=== PATIENT | female | born 1975 | race Caucasian/White ===

== ENCOUNTER 2020-07-22 09:36 | Outpatient (NON) | payer OTHER, SELFPAY ==
[2020-07-22 20:47] LABS: SARS-CoV-2 RNA PCR Positive
== END 2020-07-22 09:37 ==
PROVIDERS: PCP Family Medicine; Visit Provider Nurse Practitioner Family
DX: U07.1 COVID-19 (principal)
CPT/HCPCS: 87635; C9803; U0003

== ENCOUNTER 2021-09-24 13:45 | Outpatient (CLI) | payer OTHER, SELFPAY ==
--- NOTE | ~2021-09-24 | XR_ITS ---
XR chest 2V DATE: 09/24/2021 14:01 INDICATION: Nonproductive cough for 4 weeks TECHNIQUE: PA and lateral views COMPARISON: 02/15/2018 PA and lateral chest FINDINGS: Normal heart size. No hilar or mediastinal enlargement. No pulmonary infiltrate or consolid ation, pleural effusion or pulmonary vascular congestion or pneumothorax. Included skeletal structures are unremarkable. IMPRESSION: No active cardiopulmonary disease Reviewed, dictated and finalized at location B. [employer]
== END 2021-09-24 13:46 | disposition home or self-care (01) ==
PROVIDERS: PCP Family Medicine; Visit Provider Nurse Practitioner Family
DX: R05.9 Cough, unspecified (principal)
CPT/HCPCS: 71046

== ENCOUNTER 2023-06-18 08:48 | Outpatient (CLI) | payer OTHER, SELFPAY ==
--- NOTE | 2023-06-18 09:00 | NEURO_ITS ---
IMPRESSION: # Complains of nocturnal paresthesia of hand. Not diabetic. # Evolving left carpal tunnel syndrome # No ulnar neuropathy. # Normal needleEMG exam. Nerve Conduction Studies Anti Sensory Summary Table Stim Site NR Peak (ms) P-T Amp (?V) Site1 Site2 Delta-P (ms) Dist (cm) Luis F (m/s) Left Median Anti Sensory (2-3nd Digit) Wrist 3.1 86.2 Wrist 2-3nd Digit 3.1 14.0 45 Wrist 3.1 110.5 Wrist 2-3nd Digit 3.1 14.0 45 Right Median Anti Sensory (2-3nd Digit) Wrist 3.6 25.9 Wrist 2-3nd Digit 3.6 14.0 39 Wrist 3.8 21.3 Wrist 2-3nd Digit 3.6 14.0 39 Left Radial Anti Sensory (Base 1st Digit) Wrist 1.9 90.1 Wrist Base 1st Digit 1.9 0.0 Right Radial Anti Sensory (Base 1st Digit) Wrist 2.3 22.8 Wrist Base 1st Digit 2.3 0.0 Left Ulnar Anti Sensory (5th Digit) Wrist 2.3 161.1 Wrist 5th Digit 2.3 14.0 61 Right Ulnar Anti Sensory (5th Digit) Wrist 2.4 45.0 Wrist 5th Digit 2.4 14.0 58 Motor Summary Table Stim Site NR Onset (ms) O-P Amp (mV) Site1 Site2 Delta-0 (ms) Dist (cm) Luis F (m/s) Left Median Motor (Abd Poll Brev) Wrist 4.0 1.0 Elbow Wrist 4.9 27.0 55 Elbow 8.9 1.0 Right Median Motor (Abd Poll Brev) Wrist 3.0 8.1 Elbow Wrist 6.3 27.0 43 Elbow 9.3 1.4 Left Ulnar Motor (Abd Dig Minimi) Wrist 2.5 7.3 A Elbow Wrist 5.2 27.0 52 A Elbow 7.7 5.6 Right Ulnar Motor (Abd Dig Minimi) Wrist 2.7 5.2 A Elbow Wrist 5.0 29.0 58 A Elbow 7.7 3.9 F Wave Studies NR F-Lat (ms) L-R F-Lat (ms) Left Median (Mrkrs) (Abd Poll Brev) 28.05 0.33 Right Median (Mrkrs) (Abd Poll Brev) 27.72 0.33 Left Ulnar (Mrkrs) (Abd Dig Min) 28.52 0.94 Right Ulnar (Mrkrs) (Abd Dig Min) 27.58 0.94 EMG Side Muscle Nerve Root Ins Act Fibs Amp Dur Recrt Comment Right 1stDorInt Ulnar C8-T1 Nml Nml Nml Nml Nml Right Ext Indicis Radial (Post Int) C7-8 Nml Nml Nml Nml Nml Right Ext Digitorum Radial (Post Int) C7-8 Nml Nml Nml Nml Nml Right BrachioRad Radial C5-6 Nml Nml Nml Nml Nml Right PronatorTeres Median C6-7 Nml Nml Nml Nml Nml Right Abd Poll Brev Median C8-T1 Nml Nml Nml Nml Nml Left 1stDorInt Ulnar C8-T1 Nml Nml Nml Nml Nml Left Ext Indicis Radial (Post Int) C7-8 Nml Nml Nml Nml Nml Left Ext Digitorum Radial (Post Int) C7-8 Nml Nml Nml Nml Nml Left BrachioRad Radial C5-6 Nml Nml Nml Nml Nml Left PronatorTeres Median C6-7 Nml Nml Nml Nml Nml Left Abd Poll Brev Median C8-T1 Nml Nml Nml Nml Nml MTDD
== END 2023-06-18 08:49 | disposition home or self-care (01) ==
LOC: ANHNEURO 08:50
PROVIDERS: PCP Family Medicine; Visit Provider Family Medicine
DX: R20.2 Paresthesia of skin (principal); G56.02 Carpal tunnel syndrome, left upper limb
CPT/HCPCS: 95886; 95911

== ENCOUNTER 2024-09-21 08:33 | Outpatient (CLI) | payer OTHER, SELFPAY ==
--- NOTE | ~2024-09-21 | XR_ITS ---
3 VIEWS LUMBAR SPINE Ordering provider: Ebony James APRN History: . M54.50 - Low back pain, unspecified . Comparison: None. FINDINGS: VERTEBRAL BODIES: No visible fracture or subluxation. Mild degenerative changes. DISK SPACES: Normal. Multilevel facet joint disease. SOFT TISSUES: Atherosclerotic changes of the aorta. IMPRESSION: No acute osseous abnormality lumbar spine. Reviewed, dictated and finalized at location A. 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
== END 2024-09-21 08:34 | disposition home or self-care (01) ==
LOC: MICIMG 08:33
PROVIDERS: PCP Family Medicine; Visit Provider Nurse Practitioner Adult Health
DX: M54.50 Low back pain, unspecified (principal)
CPT/HCPCS: 72100

== ENCOUNTER 2024-09-23 00:59 | Day surgery (SDC) | payer OTHER, SELFPAY ==
[2024-09-14 14:05] VITALS: BMI 29.0
[2024-09-23 11:09] VITALS: BP 128/79; PULSE 83; RESP 16; TEMP 36.3; O2SAT 99
[2024-09-23 11:12] LABS: BEDSIDEPREGUCG Negative (Negative)
[2024-09-23] MEDS: LACTATED RINGERS 1,000 ML 150 ML IV CONT (11:15)
--- NOTE | 2024-09-23 11:22 | WPDANESEPPF ---
Anes - Initial Pre Proc Eval Procedure: Operation Date: 09/23/24 12:30 Proposed Procedures p Colonoscopy - Gualberto Suarez MD Date/Time: 09/23/24 11:22 Surgeon: Gualberto Suarez MD Pre Op Diagnosis: family hx of cancer, screening colon Patient Data Age: 49 Gender: F Height: 1.7 m Weight: 87.3 kg Last Vital Signs Temp 36.3 C L 09/23/24 11:09 Pulse 83 09/23/24 11:09 Resp 16 09/23/24 11:09 BP 128/79 09/23/24 11:09 Pulse Ox 99 09/23/24 11:09 O2 Del Method Room Air 09/23/24 11:09 Allergies Allergy/AdvReac Type Severity Reaction Status Date / Time No Known Allergies Allergy Verified 09/23/24 11:07 Home Medications ?Medication ?Instructions ?Recorded ?Confirmed ?Type albuterol sulfate 2.5 mg/3 mL 2.5 mg (3 mL) inhalation Q6H #90 mL 07/18/22 09/23/24 Rx (0.083 %) solution for nebulization loratadine 10 mg tablet (Claritin) 10 mg PO DAILY 07/18/22 09/23/24 History multivitamin 1 tablet PO DAILY 07/18/22 09/23/24 History albuterol sulfate 90 mcg/actuation 2 puff inhalation Q4H PRN 08/31/24 09/23/24 Rx aerosol inhaler shortness of breath or wheezing #8.5 grams meloxicam 15 mg tablet 15 mg PO DAILY #20 tabs 09/21/24 09/23/24 Rx tizanidine 4 mg capsule 4 mg PO TID PRN muscle spasticity 09/21/24 09/23/24 Rx #30 caps Laboratory Tests 09/23/24 11:09 POC Urine HCG, Qual Negative (Negative) Patient hx anesthesia problems: none Family hx anesthesia problems: none Results Review: All pre-operative results and documents have been reviewed as part of the pre-operative evaluation. [facility] Past Medical History Medical History Low back pain Lumbar spine pain Bilateral hand numbness BMI 32.0-32.9,adult COVID-19 BMI 30.0-30.9,adult BMI 29.0-29.9,adult Family History Family History Father No problems noted. Mother No problems noted. Sibling No problems noted. Social History Social History Smoking packs per day: 0.5 Smoking cigarettes per day: 10.0 Years smoked: 15 Smoking pack-years: 7.50 Smoking status: Current every day smoker Tobacco type: cigarettes Second hand tobacco smoke exposure: No Alcohol intake: never Substance use: never Substance use type: does not use Lack of Transportation: No Lack of Food: Never True Current Housing: I Have Housing Concerned About Future Housing: No Difficulty Paying Gas/Electric Bills: No Difficulty Paying for Meds: No Currently Unemployed: No Education: Bachelor's Degree Difficulty w/ Childcare or Family Care: No Living arrangements: with family Occupation/Education: occupation 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 Gender identity (if verbalized by the patient): Female Spiritual care concerns: No Anes - Eval Final PreProcedure Day of Procedure 09/23/24 11:22 Patient weight: obese Heart: regular rate and rhythm Lungs: clear to auscultation Airway: Mallampati scale class II Neurological: alert and oriented Last oral intake: >/= 8 hours ASA classification: III Emergent: no Anesthetic plan: proceed Anesthesia type and monitoring: general GIVS and standard monitoring Results Review: All pre-operative results and documents have been reviewed as part of the pre-operative evaluation. Informed Consent: The patient's anesthetic plan and its attendant risks and benefits were discussed with the patient/family/POA. Questions were solicited and answers provided to the satisfaction of the patient/family/POA.
--- NOTE | 2024-09-23 12:35 | PM.IMHP ---
H&P: HPI History of Present Illness Date/Time: 09/23/24 12:35 Chief Complaint: History of colon polyps Narrative: The patient has a history of colonic polyps, the last colonoscopy was 7 years ago. There is no family history of colorectal cancer. Her father has colon polyps Review of Systems Review of Systems: All systems reviewed & are unremarkable except as noted in HPI and below PMFSH Past Medical History Medical History Low back pain Lumbar spine pain Bilateral hand numbness BMI 32.0-32.9,adult COVID-19 BMI 30.0-30.9,adult BMI 29.0-29.9,adult Family History Family History Father No problems noted. Mother No problems noted. Sibling No problems noted. Social History Social History Smoking packs per day: 0.5 Smoking cigarettes per day: 10.0 Years smoked: 15 Smoking pack-years: 7.50 Smoking status: Current every day smoker Tobacco type: cigarettes Second hand tobacco smoke exposure: No Alcohol intake: never Substance use: never Substance use type: does not use Lack of Transportation: No Lack of Food: Never True Current Housing: I Have Housing Concerned About Future Housing: No Difficulty Paying Gas/Electric Bills: No Difficulty Paying for Meds: No Currently Unemployed: No Education: Bachelor's Degree Difficulty w/ Childcare or Family Care: No Living arrangements: with family Occupation/Education: occupation 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 Gender identity (if verbalized by the patient): Female Spiritual care concerns: No Meds Home Medications and Allergies Home Medications ?Medication ?Instructions ?Recorded ?Confirmed ?Type albuterol sulfate 2.5 mg/3 mL 2.5 mg (3 mL) inhalation Q6H #90 mL 07/18/22 09/23/24 Rx (0.083 %) solution for nebulization loratadine 10 mg tablet (Claritin) 10 mg PO DAILY 07/18/22 09/23/24 History multivitamin 1 tablet PO DAILY 07/18/22 09/23/24 History albuterol sulfate 90 mcg/actuation 2 puff inhalation Q4H PRN 08/31/24 09/23/24 Rx aerosol inhaler shortness of breath or wheezing #8.5 grams meloxicam 15 mg tablet 15 mg PO DAILY #20 tabs 09/21/24 09/23/24 Rx tizanidine 4 mg capsule 4 mg PO TID PRN muscle spasticity 09/21/24 09/23/24 Rx #30 caps Allergies Allergy/AdvReac Type Severity Reaction Status Date / Time No Known Allergies Allergy Verified 09/23/24 11:07 Vital Signs Vital Signs - 24 hr 09/23/24 11:09 Temperature 97.4 F L Pulse Rate 83 Respiratory Rate 16 Blood Pressure 128/79 Pulse Oximetry 99 Oxygen Delivery Room Air Exam Const: General: cooperative and healthy appearing Resp: Effort & Inspection: normal respiratory effort and able to speak in complete sentences Auscultation: clear to auscultation bilaterally Cardio: Rate: regular rate Rhythm: regular rhythm GI: Inspection: normal to inspection GI Palp: No No hepatosplenomegaly present Auscultation: normal bowel sounds Rectal Exam: deferred Skin: General skin exam: normal color Psych: Appearance: grossly normal Mental Status: mental status grossly normal Assessment and Plan Assessment and plan (1) Screening for colon cancer: Code(s): Z12.11 - Encounter for screening for malignant neoplasm of colon Status: Acute Assessment and Plan: The patient is deemed a good candidate for the procedure. Consent signed. Will proceed.
[2024-09-23 12:58] VITALS: BP 102/62; PULSE 78; RESP 23; O2SAT 100
[2024-09-23 13:08] VITALS: BP 101/76; PULSE 68; RESP 16; O2SAT 100
[2024-09-23 13:18] VITALS: BP 114/74; PULSE 67; RESP 16; O2SAT 100
== END 2024-09-23 13:31 | disposition home or self-care (01) ==
PROVIDERS: Anesthesiology; PCP Family Medicine; Referring Provider Physician Assistant Medical; Visit Provider Internal Medicine Gastroenterology
PROC: 0DJD8ZZ Inspection of Lower Intestinal Tract, Via Natural or Artificial Opening Endoscopic (ICD-10-PCS; CPT 45378; principal; 2024-09-23 12:30)
DX: Z12.11 Encounter for screening for malignant neoplasm of colon (principal); K57.30 Diverticulosis of large intestine without perforation or abscess without bleeding; K64.1 Second degree hemorrhoids; Z86.0100 Personal history of colon polyps, unspecified; F17.210 Nicotine dependence, cigarettes, uncomplicated
CPT/HCPCS: 45378; J2003; J2704; J7120